=== PATIENT | female | born 1970 | race Caucasian/White ===

== ENCOUNTER 2016-05-27 21:37 | Emergency (ER) | payer OTHER ==
[~2016-05-27] VITALS: Ht 160 cm; Wt 89.4 kg
[~2016-05-27 21:37] MED LIST: BALSALAZIDE DI750 MG PO; ESTRACE1 MG PO; FERROUS SULFAT325 MG PO; NAPROSYN500 MG PO
[2016-05-27 21:47] VITALS: BP 212/119
--- NOTE | 2016-05-27 23:33 | NUR ---
TO ER BED 6
--- NOTE | 2016-05-27 23:50 | NUR ---
Pt states vaginal bleeding off/on for over 4 years. she has been treated with provera and and ferrous sulfate. Today she felt dizzy and that had pain.
--- NOTE | 2016-05-27 23:51 | NUR ---
PATIENT PRESENTS TO ED WITH c/o dizziness and abd and lower back pain . PT DENIES N/V/D; SKIN IS PINK/WARM/DRY; AAOX4 WITH EVEN AND STEADY GAIT; LUNGS CLEAR BL; HR EVEN AND REGULAR; PT DENIES ANY FEVER, CP, SOB, OR COUGH AT THIS TIME; PATIENT STATES PAIN OF 08/04 AT THIS TIME; VSS; PATIENT POSITIONED FOR COMFORT; HOB ELEVATED; BEDRAILS UP X2; BED DOWN. ER MD MADE AWARE OF PT STATUS.
--- NOTE | 2016-05-28 00:30 | NUR ---
DR COTTER AT BEDSIDE WITH PT
--- NOTE | 2016-05-28 00:39 | NUR ---
Patient discharged with v/s stable. Written and verbal after care instructions given and explained. Patient alert, oriented and verbalized understanding of instructions. Ambulatory with steady gait. All questions addressed prior to discharge. ID band removed. Patient advised to follow up with PMD. Rx of CIPRO AND PROVERA given. Patient educated on indication of medication including possible reaction and side effects. Opportunity to ask questions provided and answered.
[2016-05-28 00:55] VITALS: BP 185/98
== END 2016-05-28 00:55 | disposition home or self-care (01) ==
LOC: MED 21:37
DX: N93.8 Other specified abnormal uterine and vaginal bleeding (principal); N39.0 Urinary tract infection, site not specified; D64.9 Anemia, unspecified

== ENCOUNTER 2016-07-03 14:46 | Emergency (ER) | payer OTHER ==
[~2016-07-03] VITALS: Ht 160 cm; Wt 88.0 kg
[~2016-07-03 14:46] MED LIST changes: +BALS750C2 PO; -BALSALAZIDE DI750 MG PO; +ESTR1TAB19 PO; -ESTRACE1 MG PO; +FERR325E14 PO; -FERROUS SULFAT325 MG PO; +NAPR500T1 PO; -NAPROSYN500 MG PO
[2016-07-03 14:51] VITALS: BP 159/78
[2016-07-03 15:27] LABS: BASOPHILS # (AUTO) 0.3 K/uL (0.00-0.22); BASOPHILS % (AUTO) 3.5 % (0.0-2.0); EOSINOPHILS # (AUTO) 0.3 K/uL (0-0.4); EOSINOPHILS % (AUTO) 3.9 % (0.0-4.0); HEMATOCRIT 38.9 % (36-48); HEMOGLOBIN 12.8 g/dL (12.0-16.0); LYMPHOCYTES # (AUTO) 2.5 K/uL (2.5-16.5); LYMPHOCYTES % (AUTO) 29.5 % (20.5-51.1); MEAN CORPUSCULAR HEMOGLOBIN 32 pg (27-31); MEAN CORPUSCULAR HGB CONC 33 g/dL (33-37); MEAN CORPUSCULAR VOLUME 96 fL (80-94); MONOCYTES # (AUTO) 0.7 K/uL (0.8-1.0); MONOCYTES % (AUTO) 8.5 % (1.7-9.3); NEUTROPHILS # (AUTO) 4.6 K/uL (1.8-7.7); NEUTROPHILS % (AUTO) 54.6 % (42.2-75.2); PLATELET COUNT (AUTO) 283 K/uL (140-450); RED BLOOD CELL COUNT(AUTO) 4.04 MIL/uL (4.20-5.40); RED CELL DISTRIBUTION WIDTH 16.7 % (11.6-13.7); WHITE BLOOD COUNT (AUTO) 8.4 K/uL (4.8-10.8)
--- NOTE | 2016-07-03 15:32 | NUR ---
AAO PT AMBULATES TO THE RESTROOM
--- NOTE | 2016-07-03 15:33 | NUR ---
Patient ambulated to bed 5. RN evaluating patient at bedside.
--- NOTE | 2016-07-03 15:33 | NUR ---
Dr. Alcantara evaluating patient at bedside.
--- NOTE | 2016-07-03 15:35 | NUR ---
PT PRESENTS TO ER W/C/O HEART PALPITATIONS SINCE THIS AM. HX HTN. PT STATES SHE WAS RECENTLY STARTED ON NIFEDIPINE 30MG BY PER PCP. DENIES N/V/D; SKIN IS PINK/WARM/DRY; AAOX4 WITH EVEN AND STEADY GAIT; LUNGS CLEAR BL; HR EVEN AND REGULAR; PT DENIES ANY FEVER, CP, SOB, OR COUGH AT THIS TIME; PATIENT STATES PAIN OF 0/10 AT THIS TIME; VSS; PATIENT POSITIONED FOR COMFORT; HOB ELEVATED; BEDRAILS UP X2; BED DOWN. ER MD MADE AWARE OF PT STATUS.
[2016-07-03 15:43] LABS: PARTIAL THROMBOPLASTIN TIME 24.6 secs (22-35.6); PROTHROMBIN TIME 9.4 secs (10.8-13.4)
[2016-07-03 15:47] LABS: ANION GAP 14.8 (8-16); CARBON DIOXIDE 24.6 mmol/L (21-32); CREATININE 0.9 mg/dL (0.6-1.3); POTASSIUM 3.4 mmol/L (3.5-5.1)
[2016-07-03 15:48] LABS: TOTAL BILIRUBIN 0.6 mg/dL (0.0-1.0); TOTAL PROTEIN, SERUM 8.1 g/dL (6.4-8.2)
[2016-07-03] MEDS ORDERED: NACL 0.9% 500 ML IV ONE (16:05)
[2016-07-03 17:15] VITALS: BP 134/75
--- NOTE | 2016-07-03 17:15 | NUR ---
Patient discharged with v/s stable. Written and verbal after care instructions given and explained. Patient verbalized understanding. Ambulatory with steady gait. All questions addressed prior to discharge. Advised to follow up with PMD.
== END 2016-07-03 17:15 | disposition home or self-care (01) ==
LOC: MED 14:46
DX: R00.2 Palpitations (principal); R03.0 Elevated blood-pressure reading, without diagnosis of hypertension
CPT/HCPCS: 36415; 80053; 85025; 85610; 85730; 99284; J7030

== ENCOUNTER 2016-07-04 21:51 | Emergency (ER) | payer OTHER ==
[~2016-07-04] VITALS: Ht 160 cm; Wt 87.1 kg
[~2016-07-04 21:51] MED LIST changes: -BALS750C2 PO; +BALSALAZIDE DI750 MG PO; -ESTR1TAB19 PO; +ESTRACE1 MG PO; -FERR325E14 PO; +FERROUS SULFAT325 MG PO; -NAPR500T1 PO; +NAPROSYN500 MG PO
[2016-07-04 21:56] VITALS: BP 154/95
--- NOTE | 2016-07-04 22:05 | NUR ---
PATIENT LEFT WITHOUT BEING SEEN BY DR. COREA. NO FURTHER CARE PROVIDED FOR PATIENT.
== END 2016-07-04 22:05 | disposition left against medical advice (07) ==
LOC: MED 21:51
DX: I10 Essential (primary) hypertension (principal); Z53.21 Procedure and treatment not carried out due to patient leaving prior to being seen by health care provider

== ENCOUNTER 2016-08-03 10:53 | Emergency (ER) | payer OTHER ==
[~2016-08-03] VITALS: Ht 162.6 cm; Wt 88.9 kg
[2016-08-03 10:59] VITALS: BP 146/70
--- NOTE | 2016-08-03 12:00 | NUR ---
A46/F BIB SON C/O PALPITATION WITH CHEST TIGHTNESS AND UPPER BACK PAIN X 9AM TODAY. PT STATES WENT TO PMD YESTERDAY, MG WAS INCREASED YESTERDAY FROM 30MG TO 60MG. HX OF HTN, GASTRITIS. DENIES N/V/D; SKIN IS PINK/WARM/DRY; AAOX4 WITH EVEN AND STEADY GAIT; LUNGS CLEAR BL; HR EVEN AND REGULAR; PT DENIES ANY FEVER, CP, SOB, OR COUGH AT THIS TIME; PATIENT STATES PAIN OF 8/10 AT THIS TIME; PATIENT POSITIONED FOR COMFORT; HOB ELEVATED; BEDRAILS UP X2; BED DOWN. ER MD MADE AWARE OF PT STATUS.
[2016-08-03] MEDS ORDERED: ASPIRIN 325 MG TABEC PO ONE (12:30)
[2016-08-03] MEDS ORDERED: LORazepam 1 MG TAB PO ONE (12:30)
[2016-08-03] MEDS ORDERED: ACETAMINOPHEN EXTRA STRENGTH 500 MG TAB PO ONE (12:30)
[2016-08-03] MEDS ORDERED: NACL 0.9% 1,000 ML IV ONE (13:50)
[2016-08-03] MEDS ORDERED: cefTRIAXone 1,000 MG VIAL ONE (15:15)
[2016-08-03 16:08] VITALS: BP 145/66
--- NOTE | 2016-08-03 16:08 | NUR ---
Patient discharged with v/s stable. Written and verbal after care instructions given and explained. Patient alert, oriented and verbalized understanding of instructions. Ambulatory with steady gait. All questions addressed prior to discharge. ID band removed. Patient advised to follow up with PMD. Rx of LISINOPRIL, NIFEDIPINE & CIPRO given. Patient educated on indication of medication including possible reaction and side effects. Opportunity to ask questions provided and answered.
== END 2016-08-03 16:08 | disposition home or self-care (01) ==
LOC: MED 10:53
DX: N39.0 Urinary tract infection, site not specified (principal); I10 Essential (primary) hypertension
CPT/HCPCS: 36415; 71010; 80053; 81001; 83880; 84484; 85025; 85610; 85730; 87086; 93005; 96361; 96365; 99285; J0696; J7030; J7060

== ENCOUNTER 2016-09-10 12:02 | Emergency (ER) | payer OTHER ==
[~2016-09-10] VITALS: Ht 160 cm; Wt 89.8 kg
[~2016-09-10 12:02] MED LIST changes: +BALS750C2 PO; -BALSALAZIDE DI750 MG PO; +ESTR1TAB19 PO; -ESTRACE1 MG PO; +FERR325E14 PO; -FERROUS SULFAT325 MG PO; +NAPR500T1 PO; -NAPROSYN500 MG PO
[2016-09-10 12:19] VITALS: BP 184/100
--- NOTE | 2016-09-10 12:55 | NUR ---
Patient being evaluated by physician at bedside.
--- NOTE | 2016-09-10 13:01 | NUR ---
46/F c/o sore throat and bilateral pain x3 days. Pt also c/o cough. VSS.
[2016-09-10 13:25] VITALS: BP 150/100
--- NOTE | 2016-09-10 13:25 | NUR ---
Chart checked and completed. The patient's care was reviewed and supervised by Caro Watkins RN.
--- NOTE | 2016-09-10 13:25 | NUR ---
Patient discharged with v/s stable. Written and verbal after care instructions given and explained. Patient alert, oriented and verbalized understanding of instructions. Ambulatory with steady gait. All questions addressed prior to discharge. ID band removed. Patient advised to follow up with PMD. Rx of CLARITIN,DEXTROMETHORPHAN/PROMETHZINE HCL given. Patient educated on indication of medication including possible reaction and side effects. Opportunity to ask questions provided and answered.
== END 2016-09-10 13:25 | disposition home or self-care (01) ==
LOC: MED 12:02
DX: B34.9 Viral infection, unspecified (principal); I10 Essential (primary) hypertension
CPT/HCPCS: 99283

== ENCOUNTER 2018-08-06 16:05 | Emergency (ER) | payer SELFPAY ==
[~2018-08-06] VITALS: Ht 160 cm; Wt 84.8 kg
[~2018-08-06 16:05] MED LIST changes: +NAPR-54 PO; -NAPR500T1 PO
[2018-08-06 16:48] VITALS: BP 171/107
--- NOTE | 2018-08-06 16:48 | NUR ---
BED SIDE TRIAGE, PT AMB TO BED 12 WITH STEADY GAIT
--- NOTE | 2018-08-06 17:02 | NUR ---
48 Y FEMALE BIB SELF C/O TINGLING HEADACHE X 2 DAYS. PAIN 10/10. STATES SHE HAS BLURRY VISION IN L EYE, SEEING WHITE. STATES SHE WAS TOLD PREVIOUSLY THAT HER EYE VESSELS WERE CONSTRICTED. NEURO INTACT. STATES SHE IS NOT ACTIVELY TAKING ALL OF HER PRESCRIBED MEDICATIONS. BS 114. BP 171/107. BED IS DOWN, LOCKED, BED RAIL X 1, ERMD TO SEE PT. PMH- DIABETES, HTN RX- LARSARTAN, NIFEDIPINE, METFORMIN
--- NOTE | 2018-08-06 17:06 | NUR ---
bilateral eyes-pupils equal, round, react to light, accommodation
--- NOTE | 2018-08-06 17:25 | NUR ---
dr singh at bedside
[2018-08-06] MEDS ORDERED: ONDANSETRON 4 MG ODT PO ONE (17:30)
[2018-08-06] MEDS ORDERED: MORPHINE SULFATE 4 MG/ML SYR IM ONE (17:30)
[2018-08-06] MEDS ORDERED: LOSA100T51 PO (17:31)
[2018-08-06] MEDS ORDERED: NIFE30TE5 PO (17:32)
[2018-08-06] MEDS ORDERED: METF500T PO (17:33)
--- NOTE | 2018-08-06 17:40 | NUR ---
GEOFFREY EMT AT BEDSIDE
--- NOTE | 2018-08-06 17:43 | NUR ---
PT BEING TAKEN TO CT VIA DEBRA
--- NOTE | 2018-08-06 17:59 | NUR ---
PT RETURNED FROM CT, RE-CONNECTED TO MONITOR
--- NOTE | 2018-08-06 18:18 | NUR ---
LIGHTS TURNED OFF FOR PT COMFORT
[2018-08-06 19:13] VITALS: BP 141/69
--- NOTE | 2018-08-06 19:13 | NUR ---
Patient discharged with v/s stable. Written and verbal after care instructions given and explained. Patient alert, oriented and verbalized understanding of instructions. Ambulatory with steady gait. All questions addressed prior to discharge. ID band removed. Patient advised to follow up with PMD. Rx of NAPROSYN, ZOFRAN given. Patient educated on indication of medication including possible reaction and side effects. Opportunity to ask questions provided and answered. PT REFERRED TO [facility]
== END 2018-08-06 19:13 | disposition home or self-care (01) ==
LOC: MED 16:05
DX: R51 Headache (principal); R50.9 Fever, unspecified; I10 Essential (primary) hypertension; E11.9 Type 2 diabetes mellitus without complications; Z79.84 Long term (current) use of oral hypoglycemic drugs; Z79.899 Other long term (current) drug therapy
CPT/HCPCS: 70450; 81002; 81025; 82948; 96372; 99284; J2270; Q0162; 93005

== ENCOUNTER 2020-12-29 23:35 | Emergency (ER) | payer OTHER ==
[~2020-12-29] VITALS: Ht 160 cm; Wt 74.8 kg
[~2020-12-29 23:35] MED LIST changes: -BALS750C2 PO; -ESTR1TAB19 PO; -FERR325E14 PO; +LOSA100T51 PO; +METF500T PO; -NAPR-54 PO; +NIFE30TE5 PO
[2020-12-29 23:41] VITALS: BP 123/82
--- NOTE | 2020-12-29 23:50 | NUR ---
PATIENT TO BATHROOM FOR URINE COLLECTION AND WILL GO TO LOBBY
--- NOTE | 2020-12-30 00:30 | NUR ---
RECEIVED PT WITH C/O VOMITING WHICH STARTED YESTERDAY. PATIENT HAS BEEN HUNGRY BUT ENDS UP VOMITING. PATIENT ALSO EXPERIENCING RIGHT SIDE PAIN THAT IS A 5/10. DENIES FEVER. PMH: HTN, DM, HDL ALLERGIES: AMOXICILLIN
[2020-12-30 00:36] LABS: APPEARANCE,URINE CLEAR (CLEAR); BILIRUBIN,URINE NEGATIVE (NEGATIVE); BLOOD, URINE TRACE-I (NEGATIVE); COLOR,URINE YELLOW (YELLOW); LEUKOCYTE ESTERASE ,URINE NEGATIVE (NEGATIVE); NITRITE, URINE POSITIVE (NEGATIVE); PH,URINE 6.5 (5.0-9.0); UGLUCOSE NEGATIVE (NEGATIVE)
--- NOTE | 2020-12-30 00:41 | NUR ---
PT AMB TO BED 1
[2020-12-30 00:43] LABS: BASOPHILS % (AUTO) 0.2 % (0.0-2.0); EOSINOPHILS # (AUTO) 0.8 K/uL (0-0.4); EOSINOPHILS % (AUTO) 7.4 % (0.0-4.0); HEMATOCRIT 39.5 % (36-48); HEMOGLOBIN 13.7 g/dL (12.0-16.0); LYMPHOCYTES # (AUTO) 2.4 K/uL (2.5-16.5); LYMPHOCYTES % (AUTO) 22.1 % (20.5-51.1); MEAN CORPUSCULAR HEMOGLOBIN 31 pg (27-31); MEAN CORPUSCULAR HGB CONC 35 g/dL (33-37); MEAN CORPUSCULAR VOLUME 89.2 fL (80-94); MONOCYTES # (AUTO) 1.3 K/uL (0.8-1.0); MONOCYTES % (AUTO) 12.2 % (1.7-9.3); NEUTROPHILS # (AUTO) 6.3 K/uL (1.8-7.7); NEUTROPHILS % (AUTO) 58.1 % (42.2-75.2); PLATELET COUNT (AUTO) 284 K/uL (140-450); RED BLOOD CELL COUNT(AUTO) 4.43 MIL/uL (4.20-5.40); RED CELL DISTRIBUTION WIDTH 13.1 % (11.6-13.7); WHITE BLOOD COUNT (AUTO) 10.9 K/uL (4.8-10.8)
[2020-12-30 00:45] LABS: RBC,URINE 0-5 /HPF (0-5)
[2020-12-30 00:58] LABS: ALBUMIN 3.5 g/dL (3.4-5.0); ANION GAP 12.4 (8-16); CARBON DIOXIDE 29.7 mmol/L (21-32); CREATININE 1.3 mg/dL (0.6-1.3); POTASSIUM 4.1 mmol/L (3.5-5.1); TOTAL BILIRUBIN 0.6 mg/dL (0.0-1.0)
[2020-12-30] MEDS ORDERED: ONDANSETRON 4 MG ODT PO ONE (01:00)
[2020-12-30] MEDS ORDERED: ALUMINUM HYD/MAG/SIMETHICONE 30 ML UDC PO ONE (01:00)
[2020-12-30] MEDS ORDERED: ONDA-188 SL (01:16)
[2020-12-30] MEDS ORDERED: CEPH-588 PO (01:16)
[2020-12-30] MEDS ORDERED: cephALEXin 500 MG CAP PO ONE (01:20)
== END 2020-12-30 01:37 | disposition home or self-care (01) ==
LOC: MED 23:35
DX: R11.2 Nausea with vomiting, unspecified (principal); N39.0 Urinary tract infection, site not specified; E11.9 Type 2 diabetes mellitus without complications; I10 Essential (primary) hypertension; Z79.84 Long term (current) use of oral hypoglycemic drugs; Z79.899 Other long term (current) drug therapy; Z88.1 Allergy status to other antibiotic agents
CPT/HCPCS: 36415; 80053; 81001; 81025; 83690; 85025; 87086; 99283; Q0162

== ENCOUNTER 2022-01-21 22:31 | Emergency (ER) | payer OTHER ==
[~2022-01-21] VITALS: Ht 160 cm; Wt 69.4 kg
[~2022-01-21 22:31] MED LIST changes: +CEPH-588 PO; +METF-346 PO; -METF500T PO; +ONDA-188 SL
[2022-01-21 22:57] VITALS: BP 155/85
--- NOTE | 2022-01-22 00:01 | NUR ---
Dr. Kimbrough examining patient.
[2022-01-22] MEDS ORDERED: AZIT250T4 PO (00:11)
[2022-01-22 00:29] VITALS: BP 155/85
--- NOTE | 2022-01-22 00:29 | NUR ---
Patient discharged with v/s stable. Written and verbal after care instructions given and explained. Patient alert, oriented and verbalized understanding of instructions. Ambulatory with steady gait. All questions addressed prior to discharge. ID band removed. Patient advised to follow up with PMD. Rx of Z PACK given. Patient educated on indication of medication including possible reaction and side effects. Opportunity to ask questions provided and answered.
== END 2022-01-22 00:29 | disposition home or self-care (01) ==
LOC: MED 22:31
DX: H66.92 Otitis media, unspecified, left ear (principal); E11.9 Type 2 diabetes mellitus without complications
CPT/HCPCS: 99283

== ENCOUNTER 2023-07-23 20:13 | Emergency (ER) | payer OTHER ==
[~2023-07-23] VITALS: Ht 160 cm; Wt 70.3 kg
[~2023-07-23 20:13] MED LIST changes: +AZIT250T4 PO; -LOSA100T51 PO; +LOSA100T52 PO
[2023-07-23 20:26] VITALS: BP 159/97; PULSE 108; RESP 20; TEMP 97.8; O2SAT 98
[2023-07-23] MEDS: NACL 0.9% 1,000 ML IV ONE (22:00)
[2023-07-23] MEDS: ONDANSETRON 4 MG/2 ML VIAL IVP ONE (22:00)
[2023-07-23 22:09] LABS: BASOPHILS % (AUTO) 0.1 % (0.0-2.0); EOSINOPHILS # (AUTO) 0.3 K/uL (0-0.4); EOSINOPHILS % (AUTO) 2.8 % (0.0-4.0); HEMATOCRIT 45.3 % (36-48); HEMOGLOBIN 15.3 g/dL (12.0-16.0); LYMPHOCYTES # (AUTO) 4.2 K/uL (2.5-16.5); LYMPHOCYTES % (AUTO) 40.9 % (20.5-51.1); MEAN CORPUSCULAR HEMOGLOBIN 29 pg (27-31); MEAN CORPUSCULAR HGB CONC 34 g/dL (33-37); MEAN CORPUSCULAR VOLUME 84.8 fL (80-94); MONOCYTES # (AUTO) 0.5 K/uL (0.8-1.0); MONOCYTES % (AUTO) 4.5 % (1.7-9.3); NEUTROPHILS # (AUTO) 5.3 K/uL (1.8-7.7); NEUTROPHILS % (AUTO) 51.7 % (42.2-75.2); PLATELET COUNT (AUTO) 241 K/uL (140-450); RED BLOOD CELL COUNT(AUTO) 5.34 MIL/uL (4.20-5.40); RED CELL DISTRIBUTION WIDTH 14.8 % (11.6-13.7); WHITE BLOOD COUNT (AUTO) 10.3 K/uL (4.8-10.8)
[2023-07-23 22:18] LABS: ANION GAP 17.9 (8-16); CALCIUM 9.2 mg/dL (8.5-10.1); CARBON DIOXIDE 22.3 mmol/L (21-32); POTASSIUM 3.2 mmol/L (3.5-5.1)
[2023-07-23 22:22] LABS: ALBUMIN 3.7 g/dL (3.4-5.0); BILIRUBIN,DIRECT 0.1 mg/dL (0.0-0.3); TOTAL BILIRUBIN 0.4 mg/dL (0.0-1.0); TOTAL PROTEIN, SERUM 8.3 g/dL (6.4-8.2)
[2023-07-23 23:11] LABS: APPEARANCE,URINE CLEAR (CLEAR); BILIRUBIN,URINE NEGATIVE (NEGATIVE); BLOOD, URINE NEGATIVE (NEGATIVE); COLOR,URINE YELLOW (YELLOW); LEUKOCYTE ESTERASE ,URINE NEGATIVE (NEGATIVE); NITRITE, URINE NEGATIVE (NEGATIVE); PH,URINE 5.5 (5.0-9.0); PROTEIN,URINE 1+ (NEGATIVE); UGLUCOSE 3+ (NEGATIVE); UROBILINOGEN,URINE 0.2 EU/dL (0.2 - 1)
[2023-07-24] MEDS: INSULIN LISPRO 100 UNITS/ML VIAL SUBQ ONE (00:08)
[2023-07-24 01:26] VITALS: BP 140/56; PULSE 97; RESP 13; TEMP 97.8; O2SAT 98
== END 2023-07-24 01:26 | disposition home or self-care (01) ==
LOC: MED 20:13
DX: E11.65 Type 2 diabetes mellitus with hyperglycemia (principal); R11.2 Nausea with vomiting, unspecified; I10 Essential (primary) hypertension; Z79.4 Long term (current) use of insulin; Z79.899 Other long term (current) drug therapy; Z88.1 Allergy status to other antibiotic agents
CPT/HCPCS: 36415; 80048; 80076; 81003; 85025; 96361; 96372; 96374; 99284; J1815; J2405; J7030